=== PATIENT | female | born 1960 | race Asian ===

== ENCOUNTER 2024-11-15 13:05 | Emergency (ER) | payer MEDICARE, OTHER, SELFPAY ==
[2024-11-15 13:08] VITALS: BP 125/73
[2024-11-15 14:32] VITALS: BMI 16.5
--- NOTE | 2024-11-15 14:36 | ED.GENMED ---
History of Present Illness
<Laney Kaba PA-C - Last Filed: 11/16/24 13:56>
General
Chief Complaint: Fall
Source: patient
Exam Limitations: none
Time Seen by Provider: 11/15/24 14:17
Nursing documentation reviewed up to this point in time: agreed with
History of Present Illness
History of Present Illness:
64 y/o F with no sig pmh
here with headache, neck pain, facial pain after falling when she tripped over a curb this morning
pt says that she didn't see the parking curb and landed on her face/knee/arm but felt pain in her neck from neck extension and has a headache
no vision changes, confusion, weakness, numbness/paresthesias
pt is not anticoagulated
she had some bleeding from her L upper lip but no dental injury
left forearm abrasion, left knee abrasion
able to walk
Past History
<KAMRON Brian Last Filed: 11/16/24 13:56>
Past History
ED Past Medical History: None
ED Past Surgical History: None
Social History
Tobacco: Non-smoker
Personal:
Living: with family
Review of Systems
<KAMRON Brian Last Filed: 11/16/24 13:56>
Review of Systems
Allergies reviewed?: Yes
All Other Systems: Not applicable
Phy Exam
<KAMRON Brian Last Filed: 11/16/24 13:56>
Physical Exam
Physical Exam:
GENERAL: Alert , in no apparent distress
HEAD: NCAT
face: left upper lip superficial abrasion
NECK: in c collar
not removed; repositioned
EYE: pupils equal and reactive, EOMs intact.
ENT: o/p clr, mmm. no hemotympanum
no dental injury
nontender
normal bite
CARDIAC: Regular rate and rhythm, no edema
LUNGS: Clear breath sounds bilaterally, no acute respiratory distress, no wheezes/rales/rhonchi
ABDOMEN: Soft, without focal tenderness, no r/g, no cvat
NEUROLOGICAL: Alert and oriented, no focal neuro deficits, CN intact, 5/5 strength, sensation intact
SKIN: Warm and dry,
MUSCULOSKELETAL: No edema, well perfused.
left forehad abrasion superficial
full rom
lef tknee abrasuion, superficial, contusion, full ROM
no hip tendnerses b/l
no rib tenderness
PSYCH: Normal and appropriate interaction.
Course
<Laney Kaba PA-C - Last Filed: 11/16/24 13:56>
Orders/Labs/Results
Orders:
Orders
11/15/24 14:30
CT Cervical Spine W/o Iv Contr Urgent
Comment:
Reason For Exam: neck pain
CT Head W/o Iv Contrast Urgent
Comment:
Reason For Exam: headache from fall
11/15/24 14:35
Acetaminophen [Tylenol] 650 mg PO NOW STA
11/15/24 14:37
CT Facial Bones W/o Iv Contras Urgent
Comment:
Reason For Exam: hit face on ground
Vital Signs
Initial and Last Documented VS:
Initial Vital Signs
Temp Pulse Resp BP Pulse Ox
36.6 C 72 16 125/73 98
11/15/24 13:08 11/15/24 13:08 11/15/24 13:08 11/15/24 13:08 11/15/24 13:08
Last Documented Vital Signs
Temp Pulse Resp BP Pulse Ox
36.6 C 74 18 126/76 99
11/15/24 13:08 11/15/24 16:54 11/15/24 16:54 11/15/24 16:54 11/15/24 16:54
<Roxi Cabrera NP - Last Filed: 11/15/24 16:11>
Orders/Labs/Results
Orders:
Orders
11/15/24 14:30
CT Cervical Spine W/o Iv Contr Urgent
Comment:
Reason For Exam: neck pain
CT Head W/o Iv Contrast Urgent
Comment:
Reason For Exam: headache from fall
11/15/24 14:35
Acetaminophen [Tylenol] 650 mg PO NOW STA
11/15/24 14:37
CT Facial Bones W/o Iv Contras Urgent
Comment:
Reason For Exam: hit face on ground
Vital Signs
Initial and Last Documented VS:
Initial Vital Signs
Temp Pulse Resp BP Pulse Ox
36.6 C 72 16 125/73 98
11/15/24 13:08 11/15/24 13:08 11/15/24 13:08 11/15/24 13:08 11/15/24 13:08
Last Documented Vital Signs
Temp Pulse Resp BP Pulse Ox
36.6 C 74 18 126/76 99
11/15/24 13:08 11/15/24 16:54 11/15/24 16:54 11/15/24 16:54 11/15/24 16:54
<Laney Kaba PA-C - Last Filed: 11/16/24 13:56>
MDM/Problems Addressed
Differential Diagnosis Includes:
concussion, cervical strain
MDM/Problems Addressed:
64 y/o F
neck pain, headache, facial pain after mechanical fall outside today about 1230 pm
no LOC
no AC
pain in her mouth, head, neck
no numbness/tingling/weaknesns
a few abrassions on forearm, knee and mouth
no oral injury
intact neuro
decilned tetanus
tylenol, ct head/neck/facial bones
<Roxi Cabrera NP - Last Filed: 11/15/24 16:11>
*Critical Care Note
Total Time (30-74mins, 75-104mins- exclusive of procedures): Not Applicable
<Roxi Cabrera NP - Last Filed: 11/15/24 16:11>
Update Note
Update Note:
CT results reviewed with patient and spouse. Reinforced mild concussion s/s. SHe is discharged home, will followup with PCP
ED Attending Note
<Laney Kaba PA-C - Last Filed: 11/16/24 13:56>
-
Portions of this chart may have been created with voice recognition software.� Occasional wrong word or��sound alike� substitutions may have occurred due to the inherent limitations of voice recognition software.
Discharge Plan
Departure
Patient Disposition: Home (Routine Discharge)
Date of Disposition: 11/15/24
Time of Disposition: 16:06
Patient with high blood pressure during this ER visit?: No
Discharge Problem:
Mild concussion, Cervical muscle strain, Abrasion
Instructions: Concussion, Adult (DC), Head Injury in Adults (DC), Skin Abrasions (DC)
Prescriptions:
No Action
No Meds [No Current Medications]
Referrals:
Karina Bhardwaj PA-C [Family Provider] - Follow up in 2-3 days
Activity Restrictions/Additional Instructions:
YOU MAY HAVE A MILD CONCUSSION
for this we recommend 24-48 hours of brain rest to help your brain heal and your headache improve.
also use tylenol every 6 hours, motrin every 8 hours as needed for pain.
for your neck, heat off and on as needed.
AFTER 48 HOURS you can return to regular activity
if you are getting headaches, then stop and rest.
follow up with your doctor for persisten theadaches
you may have strained your neck
ice or heat
follow upw ith orthopedics
return to the er for: worsening pain, vomiting, confusion, weakness, numbness/tingling in arms or legs or any concerns.
Interventions
Interventions:
*Risk Screen - Suicide Last Done: 11/15/24 13:08
*General Assessment Last Done: 11/15/24 14:32
*Neglect/Abuse Screening Last Done: 11/15/24 13:08
*ED COVID-19 Vaccine History Last Done: 11/15/24 14:32
*Nursing Disposition Last Done: 11/15/24 16:54
ED-Musculoskeletal Assessment Last Done: 11/15/24 14:32
ED- Neurological Assessment Last Done: 11/15/24 14:32
ED-Skin Assessment Last Done: 11/15/24 14:32
Discharge Date and Time
Discharge Date/Time: 11/15/24 17:24
Print Language: ZAMBIAN
[2024-11-15] MEDS: TYLENOL 650 MG PO (14:49)
[2024-11-15 16:54] VITALS: BP 126/76
== END 2024-11-15 17:24 | disposition home or self-care (01) ==
LOC: EMR 13:05
PROVIDERS: EMERGENCY PHYSICIAN Student in an Organized Health Care Education/Training Program; FAMILY PHYSICIAN Physician Assistant Medical
DX: S06.0X0A Concussion without loss of consciousness, initial encounter (principal); S16.1XXA Strain of muscle, fascia and tendon at neck level, initial encounter; S00.81XA Abrasion of other part of head, initial encounter; S80.212A Abrasion, left knee, initial encounter; S50.812A Abrasion of left forearm, initial encounter; W18.09XA Striking against other object with subsequent fall, initial encounter
CPT/HCPCS: 99284; 70450; 70486; 72125